=== PATIENT | male | born 1960 | race Hispanic/Latino ===

== ENCOUNTER 2017-05-10 19:23 | Inpatient (IN) | payer SELFPAY ==
[~2017-05-10 19:23] MED LIST: ISOVUE-370 76%-LOCM 1 ML ONE
[2017-05-10] MEDS ORDERED: Lidocaine Viscous Sol 2% 15 ml UD Cup ONE (20:45)
[2017-05-10] MEDS ORDERED: Mag-Al 1200 mg/1200 mg/30 ML UDCUP ONE (20:45)
[2017-05-10 21:10] LABS: #Basophils 0.1 thou/uL (0.0-0.2); #Eosinphils 0.1 thou/uL (0.0-0.7); #Monocytes 0.6 thou/uL (0.11-0.59); #Neutrophils 7.1 thou/uL (1.40-6.50); %Basophils 0.9 % (0.0-1.0); %Eosinophils 1.3 % (0.0-10.0); %Lymphocytes 19.9 % (21.0-51.0); %Monocytes 6.3 % (0.0-10.0); Hematocrit 38.7 % (42.0-52.0); Mean Platelet Volume 8.4 fL (7.4-10.4); Red Blood Cell (RBC) Count 3.98 mill/uL (4.70-6.10); White Blood Cell (WBC) Count 9.9 thou/uL (4.8-10.8)
[2017-05-10 21:20] LABS: ALT (SGPT) 41 U/L (8-55); AST (SGOT) 36 U/L (5-34); Alkaline Phosphatase 88 U/L (40-150); Anion Gap 17 mmol/L (10-20); BUN (Urea Nitrogen) 18 mg/dL (8.4-25.7); Bilirubin, Total 0.9 mg/dL (0.2-1.2); Calc. Creatinine Clearance 0 mL/min (70-130); Calcium 9.9 mg/dL (7.8-10.44); Carbon Dioxide 24 mmol/L (22-29); Chloride 101 mmol/L (98-107); Estimated GFR-MDRD 70; Globulin 3.9 g/dL (2.4-3.5); Lipase 23 U/L (8-78); Protein, Total 8.7 g/dL (6.0-8.3)
[2017-05-10 21:25] LABS: Bilirubin Negative (Negative); Blood, Urine Negative (Negative); Glucose, Urine (Dipstick) Negative (Negative); Ketone, Urine Negative (Negative); Nitrite Negative (Negative); Protein, Urine (Dipstick) Negative (Neg-Trace); Urobilinogen 0.2 mg/dL (0.2-1.0)
[2017-05-10] MEDS ORDERED: Ondansetron HCl/PF 4 MG/2 ML Vial ONE (21:28)
[2017-05-10] MEDS ORDERED: Oxymetazoline HCl 0.05% ( 15 ML ) ONE (23:26)
[2017-05-11] MEDS ORDERED: Ondansetron ODT 4 MG TAB SL PRN (00:04)
[2017-05-11] MEDS ORDERED: Ondansetron HCl/PF 4 MG/2 ML Vial IVP PRN (00:04)
[2017-05-11] MEDS: D5 1/2 NS w/10 mEq KCl 1,000 ML/1,000 ML BAG IV SCH ×2 (00:18→09:00)
[2017-05-11 00:34] VITALS: BMI 35.5
--- NOTE | 2017-05-11 00:42 | CT ---
CT OF THE ABDOMEN AND PELVIS WITH IV CONTRAST 05/10/17 INDICATION: Epigastric abdominal pain. FINDINGS: Comparisons are made with the prior dated 04/02/04. FINDINGS: The lung bases are clear. Small splenule is seen within the left upper quadrant which is stable. Liver, pancreas, adrenal glands, and kidneys appear within normal limits. There are moderately dilat ed loops of central small bowel. Proximal small bowel is of normal caliber. There are transition zon es seen within the left mid abdomen and the left lower quadrant of the abdomen. Findings may reflect sequela of a mild partial small bowel closed loop obstruction. The distal small bowel is of normal caliber. The colon is within normal limits. The appendix is not definitely visualized. The bladder, rectum and perirectal soft tissues are unrem arkable. No drainable fluid collection is grossly evident. Scattered degenerative and osteoarthritic change. IMPRESSION: 1. Findings suspicious for mild closed loop obstruction involving the central small bowel, left of midline, within the abdomen. Alternatively, findings could reflect a regional ileus. 2. No drainable fluid collection demonstrated. POS: [facility]
--- NOTE | 2017-05-11 14:03 | HP ---
HISTORY OF PRESENT ILLNESS: Eric Galicia is a 56-year-old Croatian-speaking only male who h as undergone ruptured appendicitis with appendectomy performed by Dr. Rivas in 2003. He has had a he rnia repair in the past. He presents with abdominal distention onset yesterday, nausea and vomiting . He presented to the emergency room. CAT scan of abdomen and pelvis revealed dilated loops of sma ll bowel suggestive of possible closed loop obstruction. NG tube was placed. Radiologically the ti p is a barely outside the esophagus. His output has been about 250 mL overnight. The patient repor ts passing flatus this morning. He is feeling better, not having much pain. Abdominal x-rays this morning reveal stool in the colon. ALLERGIES: None. TOBACCO: None. ALCOHOL: 5-6 beers a day or more. MEDICATIONS: None routinely. PAST SURGICAL HISTORY: Inguinal hernia repair and appendectomy for ruptured appendicitis years past . PAST MEDICAL HISTORY: Noncontributory. The patient works on a ranch. REVIEW OF SYSTEMS: [place] point noncontributory. PHYSICAL EXAMINATION: VITAL SIGNS: Height 5 foot 3, 200 pounds, 35 BMI, 97.9, 61, 148/80. HEENT: Unremarkable. LUNGS: Clear to auscultation. CARDIAC: Regular rate and rhythm without murmur or gallop. ABDOMEN: Obese, soft, nontender, well-healed midline scar from upper abdomen to lower abdomen. EXTREMITIES: Unremarkable. LABORATORY: Sodium 138, potassium 4.2, BUN 18, creatinine 1.09. Liver function tests are normal. White count 9, hemoglobin 13. ASSESSMENT AND PLAN: 1. History and exam consistent with bowel obstruction. He seems to have improved. Currently, he d oes not have an exam to suggest ischemic bowel. CAT scan raises the possibility of a closed loop ob struction, but he has passed flatus. NG tube is barely in the stomach. We will advance from 50 cm to 65-70 cm. We will order a Gastrografin small bowel follow through and make further recommendatio ns pending these results. 2. Alcohol abuse.
[2017-05-11] MEDS ORDERED: Ondansetron HCl/PF 4 MG/2 ML Vial SLOW IVP PRN (14:21)
--- NOTE | 2017-05-11 15:31 | RAD ---
ACUTE ABDOMINAL SERIES: Date: 05/11/17 PROVIDED CLINICAL HISTORY: Small bowel obstruction. FINDINGS: Correlation is made with the CT examination dated 05/10/17. The cardiac and mediastinal silhouette is within normal limits. No focal consolidation, pleural fluid , or pneumothorax apparent. Interval placement of an enteric catheter, the proximal side hole lucency of which projects below the left hemidiaphragm. There are several loops of gas-filled, mildly dilated small bowel within the left mid abdomen. Some c olon gas is seen. There is no evidence for pneumoperitoneum. No suspicious calcifications are apparen t. IMPRESSION: 1. No evidence for an acute cardiopulmonary proces2. 2. Persistent mildly dilated loops of gas-filled small bowel within the left mid abdomen. If there i s concern for obstruction, consider Gastrografin small bowel follow-through. POS: OFF
[2017-05-11] MEDS ORDERED: MD-Gastroview 120 ML BOT ONE (16:23)
[2017-05-11] MEDS ORDERED: Magnesium Citrate 300 ML BOT PER TUBE SCH (16:30)
[2017-05-11] MEDS ORDERED: Acetaminophen 1,000 MG in Premix Bag 1 BAG IVPB PRN (16:54)
--- NOTE | 2017-05-11 17:43 | RAD ---
SMALL BOWEL FOLLOW THROUGH: 05/11/17 HISTORY: Abdominal pain. Possible obstruction. FINDINGS: Gastrografin contrast was administered for the indwelling nasogastric tube. Immediate image shows co ntrast opacification of a nondilated proximal jejunum. At one hour, three is opacification of the no ndilated small bowel and contrast within the right colon. IMPRESSION: Rapid small bowel transit. No evidence of obstruction. POS: [facility]
[2017-05-11] MEDS ORDERED: Enoxaparin Sodium 40 MG/0.4 ML SYRINGE SC SCH (21:00)
[2017-05-12] MEDS ORDERED: Polyethylene Glycol 3350 17 GM Packet PO SCH (09:00)
[2017-05-12] MEDS ORDERED: FLU VACC QS2017-18 36 mo. & older 0.5 ML SYRINGE IM ONE (09:00)
[2017-05-12 13:25] VITALS: BP 128/73; TEMP 98.1
--- NOTE | 2017-05-12 18:45 | DIS ---
DATE OF ADMISSION: 05/10/2017 DATE OF DISCHARGE: 05/12/2017 DISCHARGE DIAGNOSES: Constipation, gastritis, possible partial bowel obstruction. PROCEDURES: NG tube suction, small bowel follow through, normal CAT scan. On admission, he just developed small-bowel obstruction. The patient after small bowel follow throu had magnesium citrate through his NG tube. He had constipation noted on his admitting CAT scan a nd followup abdominal x-rays. The patient had copious bowel movements and tolerated diet and is roger ng discharged home. Follow up as needed.
--- NOTE | 2017-05-12 23:08 | PRG ---
DATE OF SERVICE: 05/12/2017 SUBJECTIVE: Eric Galicia is doing well today. He is tolerating a regular diet. His small bowel follow-through was normal with transit through the small bowel within 1 hour. He is not havi ng any abdominal pain. OBJECTIVE: LUNGS: Clear to auscultation. CARDIAC: Regular rate and rhythm without murmur or gallop. ABDOMEN: Soft, nontender. LABORATORY DATA: Normal. ASSESSMENT AND PLAN: Small-bowel obstruction, resolved, probably more likely to constipation. Soo peng will be discharged home today. Follow up p.r.n. Diet and activity as tolerated.
--- NOTE | 2017-05-13 15:22 | EKG ---
Test Reason : UPPER GASTRIC PAIN Blood Pressure : / mmHG Vent. Rate : 066 BPM Atrial Rate : 066 BPM P-R Int : 128 ms QRS Dur : 086 ms QT Int : 398 ms P-R-T Axes : 024 030 027 degrees QTc Int : 417 ms Normal sinus rhythm No STEMI Normal ECG Confirmed by DEANNE WALLACE M.D. ([id number]), video effects editor MARK PHILIPPE ([id number] on 05/13/2017 3:22:22 PM Referred By: Confirmed By:DEANNE WALLACE M.D.
== END 2017-05-12 18:26 | disposition home or self-care (01) | DRG 390 ==
LOC: ERS 19:23 → SURG A 23:56
PROVIDERS: ADMIT Specialist; ATTEND Specialist
DX: K56.609 Unspecified intestinal obstruction, unspecified as to partial versus complete obstruction (principal); F10.10 Alcohol abuse, uncomplicated; K59.00 Constipation, unspecified; K29.70 Gastritis, unspecified, without bleeding
CPT/HCPCS: 74022; 74177; 74250; 80053; 81003; 83690; 85025; 90471; 90682; 93005; 96361; 96374; A4216; G0008; J0131; J1650; J2405; Q2036

== ENCOUNTER 2021-03-15 06:00 | Emergency (ER) | payer SELFPAY ==
[2021-03-15 06:32] LABS: Bacteria/HPF None Seen HPF (None Seen); Bilirubin Negative (Negative); Blood, Urine 3+ (Negative); Clarity Turbid (Clear); Glucose, Urine (Dipstick) 50 mg/dL (Negative); Ketone, Urine Negative (Negative); Leukocyte Negative Leu/uL (Negative); Nitrite Negative (Negative); Protein, Urine (Dipstick) Negative (Neg-Trace); RBC/HPF Greater than 50 HPF (0-3); Specific Gravity, Urine 1.012 (1.002-1.036); Squamous Epithelial 0-3 HPF (0-3); Urobilinogen Normal mg/dL (Less than 2); WBC/HPF 0-3 HPF (0-3)
[2021-03-15 08:08] LABS: #Eosinphils 0.1 thou/uL (0.0-0.7); #Lymphocytes 1.7 thou/uL (1.20-3.40); #Monocytes 0.6 thou/uL (0.11-0.59); #Neutrophils 9.1 thou/uL (1.40-6.50); %Basophils 0.4 % (0.0-1.0); %Eosinophils 0.5 % (0.0-10.0); %Lymphocytes 14.8 % (21.0-51.0); %Monocytes 5.5 % (0.0-10.0); %Neutrophils 78.9 % (42.0-75.0); Mean Corpuscular HGB CONC 36.1 g/dL (32.0-36.0); Mean Corpuscular Hemoglobin 34.6 pg (27.0-31.0); Mean Corpuscular Volume 96.1 fL (78.0-98.0); Mean Platelet Volume 7.9 fL (7.4-10.4); Platelet Count 261 thou/uL (130-400); RBC Distribution Width 11.3 % (11.5-14.5); Red Blood Cell (RBC) Count 4.05 mill/uL (4.70-6.10); White Blood Cell (WBC) Count 11.5 thou/uL (4.8-10.8)
[2021-03-15 08:31] LABS: ALT (SGPT) 51 U/L (8-55); AST (SGOT) 42 U/L (5-34); Albumin 4.3 g/dL (3.5-5.0); Alkaline Phosphatase 87 U/L (40-110); Anion Gap 18 mmol/L (10-20); BUN (Urea Nitrogen) 17 mg/dL (8.4-25.7); Bilirubin, Total 0.6 mg/dL (0.2-1.2); Calc. Creatinine Clearance 0 mL/min (70-130); Calcium 9.4 mg/dL (7.8-10.44); Carbon Dioxide 20 mmol/L (22-29); Chloride 101 mmol/L (98-107); Globulin 4.1 g/dL (2.4-3.5); Glucose 212 mg/dL (70-105); Potassium 4.5 mmol/L (3.5-5.1); Protein, Total 8.4 g/dL (6.0-8.3); Sodium 134 mmol/L (136-145)
[2021-03-15] MEDS ORDERED: Morphine 4 MG/ML VIAL ONE ×2 (08:35→10:17)
[2021-03-15] MEDS ORDERED: Ondansetron PF 4 MG/2 ML Vial ONE (08:35)
[2021-03-15] MEDS ORDERED: Piperacillin/Tazobactam 3.375 GM VIAL ONE (09:48)
[2021-03-15 11:12] LABS: SARS-CoV-2 NAA Rapid Test Not Detected (NotDetected)
[2021-03-15 12:22] LABS: Lactic Acid 3.5 mmol/L (0.5-2.2)
[2021-03-15] MEDS ORDERED: Iopamidol-370 76% 500 ML 1 ML ONE (13:25)
== END 2021-03-15 16:00 | disposition home or self-care (01) ==
LOC: ERS 06:00
DX: N13.2 Hydronephrosis with renal and ureteral calculous obstruction (principal); Z20.822 Contact with and (suspected) exposure to COVID-19; I10 Essential (primary) hypertension; K21.9 Gastro-esophageal reflux disease without esophagitis
CPT/HCPCS: 36415; 71045; 74177; 80053; 81003; 81015; 83605; 83690; 84484; 85025; 87040; 87086; 93005; 96365; 96366; 96375; 96376; J2270; J2405; J2543; Q9967; U0002

== ENCOUNTER 2022-05-13 06:34 | Observation (INO) | payer SELFPAY ==
[2022-05-13 07:15] LABS: #Basophils 0.1 thou/uL (0.0-0.2); #Eosinphils 0.4 thou/uL (0.0-0.7); #Lymphocytes 2.6 thou/uL (1.20-3.40); #Monocytes 0.6 thou/uL (0.11-0.59); #Neutrophils 2.7 thou/uL (1.40-6.50); %Basophils 0.9 % (0.0-1.0); %Eosinophils 6.5 % (0.0-10.0); %Lymphocytes 41.1 % (21.0-51.0); %Monocytes 8.6 % (0.0-10.0); Hemoglobin 13.6 g/dL (14.0-18.0); Mean Corpuscular HGB CONC 34.5 g/dL (32.0-36.0); Mean Corpuscular Hemoglobin 33.7 pg (27.0-31.0); Mean Corpuscular Volume 97.6 fl (78.0-98.0); Platelet Count 227 thou/uL (130-400); RBC Distribution Width 11.3 % (11.5-14.5); Red Blood Cell (RBC) Count 4.02 mill/uL (4.70-6.10); White Blood Cell (WBC) Count 6.3 thou/uL (4.8-10.8)
[2022-05-13 07:25] LABS: ALT (SGPT) 37 U/L (8-55); AST (SGOT) 29 U/L (5-34); Albumin 4.5 g/dL (3.4-4.8); Alkaline Phosphatase 86 U/L (40-110); Anion Gap 11 mmol/L (10-20); BUN (Urea Nitrogen) 11 mg/dL (8.4-25.7); Bilirubin, Total 0.5 mg/dL (0.2-1.2); Calc. Creatinine Clearance 0 mL/min (70-130); Calcium 9.4 mg/dL (7.8-10.44); Carbon Dioxide 25 mmol/L (23-31); Chloride 104 mmol/L (98-107); Estimated GFR 90; Globulin 3.5 g/dL (2.4-3.5); Glucose 162 mg/dL (80-115); Lipase 36 U/L (8-78); Potassium 4.1 mmol/L (3.5-5.1); Sodium 136 mmol/L (136-145)
[2022-05-13] MEDS ORDERED: Aspirin Chewable 81 MG TAB ONE (08:55)
[2022-05-13] MEDS ORDERED: Acetaminophen 325 MG TAB PO PRN (09:58)
[2022-05-13] MEDS ORDERED: Ondansetron PF 4 MG/2 ML Vial IVP PRN (09:58)
[2022-05-13] MEDS ORDERED: Nitroglycerin 0.4 MG TAB (25 Tab Bottle) SL PRN (10:09)
[2022-05-13] MEDS ORDERED: HumaLOG 300 UNITS/3 ML VIAL SC PRN (10:18)
[2022-05-13] MEDS ORDERED: Dextrose 50% Abboject 50 ML SYRINGE SLOW IVP PRN (10:18)
[2022-05-13] MEDS ORDERED: Dextrose 5% in Water 1,000 ML IV PRN (10:18)
[2022-05-13 11:42] LABS: Troponin I Less than 0.010 ng/mL (< 0.028)
[2022-05-13 13:58] LABS: Troponin I Less than 0.010 ng/mL (< 0.028)
[2022-05-13] MEDS ORDERED: Amlodipine 10 MG TAB PO SCH (15:45)
[2022-05-13] MEDS ORDERED: Lisinopril 20 MG TAB PO SCH (15:45)
[2022-05-13 15:55] LABS: SARS-CoV-2 NAA Rapid Test Not Detected (NotDetected)
[2022-05-13 16:07] VITALS: BMI 25.4
[2022-05-13] MEDS ORDERED: Atorvastatin Calcium 40 MG TAB PO SCH (21:00)
[2022-05-14 05:47] LABS: #Basophils 0.1 thou/uL (0.0-0.2); #Eosinphils 0.3 thou/uL (0.0-0.7); #Lymphocytes 2.7 thou/uL (1.20-3.40); #Monocytes 0.7 thou/uL (0.11-0.59); #Neutrophils 3.9 thou/uL (1.40-6.50); %Basophils 1.1 % (0.0-1.0); %Eosinophils 4.1 % (0.0-10.0); %Lymphocytes 34.8 % (21.0-51.0); %Monocytes 9.1 % (0.0-10.0); %Neutrophils 50.9 % (42.0-75.0); Hemoglobin 12.8 g/dL (14.0-18.0); Mean Corpuscular HGB CONC 33.1 g/dL (32.0-36.0); Mean Corpuscular Hemoglobin 32.4 pg (27.0-31.0); Mean Corpuscular Volume 97.7 fl (78.0-98.0); Mean Platelet Volume 8.1 fL (7.4-10.4); Platelet Count 229 thou/uL (130-400); RBC Distribution Width 11.5 % (11.5-14.5); Red Blood Cell (RBC) Count 3.94 mill/uL (4.70-6.10); White Blood Cell (WBC) Count 7.7 thou/uL (4.8-10.8)
[2022-05-14 06:02] LABS: Anion Gap 12 mmol/L (10-20); BUN (Urea Nitrogen) 14 mg/dL (8.4-25.7); Calc. Creatinine Clearance 84 mL/min (70-130); Calcium 9.4 mg/dL (7.8-10.44); Carbon Dioxide 23 mmol/L (23-31); Chloride 103 mmol/L (98-107); Estimated GFR 93; Glucose 131 mg/dL (80-115); Potassium 4.1 mmol/L (3.5-5.1); Sodium 134 mmol/L (136-145)
[2022-05-14 08:42] VITALS: TEMP 97.4
[2022-05-14] MEDS ORDERED: Lisinopril 20 MG TAB PO SCH (09:00)
[2022-05-14] MEDS ORDERED: Enoxaparin Sodium 40 MG/0.4 ML SYRINGE SC SCH (09:00)
[2022-05-14] MEDS ORDERED: Amlodipine 10 MG TAB PO SCH (09:00)
[2022-05-14] MEDS ORDERED: Aspirin 81 mg Enteric Coated Tablet PO SCH (09:00)
[2022-05-14] MEDS ORDERED: ADENOSINE 60 MG/20 ML VIAL ONE (10:08)
[2022-05-14 13:49] VITALS: BP 131/64
[2022-05-14] MEDS ORDERED: FLU VACC QS2022-23(6MOS UP)/PF 60 MCG/0.5 ML SYRINGE IM ONE (18:00)
== END 2022-05-14 15:21 | disposition home or self-care (01) ==
LOC: ERS 06:34 → ERHOLD 08:55 → 2SW 14:57
PROVIDERS: ADMIT Internal Medicine; ATTEND Internal Medicine
DX: R07.2 Precordial pain (principal); E11.9 Type 2 diabetes mellitus without complications; I10 Essential (primary) hypertension; K21.9 Gastro-esophageal reflux disease without esophagitis; E78.00 Pure hypercholesterolemia, unspecified; Z20.822 Contact with and (suspected) exposure to COVID-19
CPT/HCPCS: 36415; 36416; 71045; 78452; 80048; 80053; 83690; 84484; 85025; 93005; 93017; A9500; G0378